=== PATIENT | female | born 1960 | race African-American/Black ===

== ENCOUNTER → 2017-09-24 | Outpatient (CLI) | payer MEDICAID ==
[~2017-09-24] MED LIST: MUCINEX 60600 MG/TA1 PO; TAMIFLU 75MG75 MG PO; TUSS PO
== END ==
LOC: COL.LAB 11:30
DX: N76.0 Acute vaginitis (principal); Z88.0 Allergy status to penicillin

== ENCOUNTER → 2017-10-02 | Outpatient (CLI) | payer MEDICAID ==
[2017-10-02 14:21] LABS: BASO # 0.1 (0.0-0.2); BASO % 1.2 % (0.0-2.0); EOS # 0.3 (0.0-0.7); EOS % 4.3 % (0-4.0); GRAN # 2.3 (1.4-6.5); GRAN % 39.7 % (42.2-75.2); HEMATOCRIT 40.9 % (37.0-47.0); HEMOGLOBIN 13.4 g/dl (12.5-16.0); LYMPH # 2.5 (1.2-3.4); LYMPH % 43.3 % (20.0-51.0); MEAN CELL VOLUME 95 fl (80.0-100.0); MEAN CORPUSCULAR HEMOGLOBIN 31 pg (27.0-31.0); MEAN CORPUSCULAR HGB CONC 33 g/dl (33.0-37.0); MEAN PLATELET VOLUME 12.1 fl (7.4-10.4); MONO # 0.7 (0.1-0.6); MONO % 11.3 % (1.7-9.3); PLATELET COUNT 204 K/mm3 (130-400); RED BLOOD COUNT 4.33 M/mm3 (4.10-5.30); REDCELL DISTRIBUTION WIDTH-CV 13.1 % (11.5-14.5)
[2017-10-02 14:31] LABS: ALBUMIN 3.9 gm/dL (3.5-5.0); BILIRUBIN,TOTAL 0.4 mg/dL (0.0-1.0); CALCIUM 10.1 mg/dL (8.4-10.2); CHOLESTEROL RISK RATIO 3.5; CREATININE, serum 0.7 mg/dL (0.52-1.25); POTASSIUM 4.5 mmol/L (3.4-5.0); TOTAL PROTEIN 7.4 gm/dL (6.4-8.2)
== END ==
LOC: COL.LAB 09:26
PROVIDERS: Family Medicine
DX: Z13.0 Encounter for screening for diseases of the blood and blood-forming organs and certain disorders involving the immune mechanism (principal); Z13.220 Encounter for screening for lipoid disorders; Z20.2 Contact with and (suspected) exposure to infections with a predominantly sexual mode of transmission; B19.20 Unspecified viral hepatitis C without hepatic coma

== ENCOUNTER → 2018-09-25 | Outpatient (CLI) | payer MEDICAID ==
[2018-09-25 17:38] LABS: BASO # 0.1 (0.0-0.2); BASO % 0.9 % (0.0-2.0); EOS # 0.3 (0.0-0.7); EOS % 4.4 % (0-4.0); GRAN # 2.4 (1.4-6.5); GRAN % 43.2 % (42.2-75.2); HEMATOCRIT 43.6 % (37.0-47.0); HEMOGLOBIN 14.6 g/dl (12.5-16.0); LYMPH # 2.3 (1.2-3.4); LYMPH % 41.5 % (20.0-51.0); MEAN CELL VOLUME 92 fl (80.0-100.0); MEAN CORPUSCULAR HEMOGLOBIN 31 pg (27.0-31.0); MEAN CORPUSCULAR HGB CONC 34 g/dl (33.0-37.0); MEAN PLATELET VOLUME 11.7 fl (7.4-10.4); MONO # 0.6 (0.1-0.6); MONO % 9.8 % (1.7-9.3); PLATELET COUNT 205 K/mm3 (130-400); RED BLOOD COUNT 4.73 M/mm3 (4.10-5.30)
[2018-09-25 17:47] LABS: ALBUMIN 4.3 gm/dL (3.5-5.0); BILIRUBIN,TOTAL 0.4 mg/dL (0.0-1.0); CALCIUM 10.7 mg/dL (8.4-10.2); CHOLESTEROL RISK RATIO 3.3; CREATININE, serum 0.62 mg/dL (0.52-1.25); POTASSIUM 4.3 mmol/L (3.4-5.0); TOTAL PROTEIN 8.8 gm/dL (6.4-8.2)
[2018-09-25 18:04] LABS: HIV-1p24 Antigen Non-Reactive
[2018-09-25 18:05] LABS: HIV 1/2 Antibodies Non-Reactive
[2018-09-25 18:16] LABS: THYROID STIMULATING HORMONE 3.16 uIU/mL (0.465-4.680)
== END ==
LOC: ZCOL.LAB 16:01
PROVIDERS: Family Medicine
DX: Z13.6 Encounter for screening for cardiovascular disorders (principal); Z13.0 Encounter for screening for diseases of the blood and blood-forming organs and certain disorders involving the immune mechanism; Z11.3 Encounter for screening for infections with a predominantly sexual mode of transmission; Z13.29 Encounter for screening for other suspected endocrine disorder; N89.8 Other specified noninflammatory disorders of vagina

== ENCOUNTER 2019-04-25 13:19 | Outpatient (RCR) | payer OTHER | END 2019-05-18 | disposition home or self-care (01) | LOC: WSOH | DX: S00.83XA Contusion of other part of head, initial encounter (principal); S06.0X0A Concussion without loss of consciousness, initial encounter; Z87.891 Personal history of nicotine dependence; C50.919 Malignant neoplasm of unspecified site of unspecified female breast; Z79.899 Other long term (current) drug therapy ==

== ENCOUNTER 2019-05-20 13:23 | Outpatient (RCR) | payer OTHER | END 2019-05-28 11:08 | disposition home or self-care (01) | LOC: WSOH 13:23 | DX: C50.919 Malignant neoplasm of unspecified site of unspecified female breast (principal); S00.83XD Contusion of other part of head, subsequent encounter; S06.0X0D Concussion without loss of consciousness, subsequent encounter; Z98.890 Other specified postprocedural states; Z92.21 Personal history of antineoplastic chemotherapy; Y99.0 Civilian activity done for income or pay ==

== ENCOUNTER → 2019-06-04 | Outpatient (CLI) | payer MEDICAID | LOC: ZCOL.LAB 17:31 | DX: N89.8 Other specified noninflammatory disorders of vagina (principal) ==

== ENCOUNTER → 2019-07-09 | Outpatient (CLI) | payer MEDICAID ==
[2019-07-09 17:45] LABS: CALCIUM 10.9 mg/dL (8.4-10.2); CHOLESTEROL RISK RATIO 3.1; CREATININE, serum 0.67 (0.52-1.25); POTASSIUM 4.3 mmol/L (3.4-5.0)
== END ==
LOC: ZCOL.LAB 16:19
PROVIDERS: Family Medicine
DX: Z01.89 Encounter for other specified special examinations (principal)

== ENCOUNTER → 2020-09-08 | Outpatient (CLI) | payer OTHER | LOC: COL.RAD | DX: M25.561 Pain in right knee (principal); M79.641 Pain in right hand ==

== ENCOUNTER → 2023-08-09 | Outpatient (CLI) | payer OTHER | LOC: COL.RAD 10:11 | DX: M19.042 Primary osteoarthritis, left hand (principal) ==